=== PATIENT | male | born 1950 ===

== ENCOUNTER 2016-10-28 19:21 | Emergency (ER) | payer MEDICAID ==
[2016-10-28 19:26] VITALS: BP 138/90; PULSE 86; RESP 18; TEMP 99; O2SAT 96
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
== END 2016-10-28 20:53 | disposition home or self-care (01) ==
LOC: H.ER 19:21
DX: M54.5 Low back pain (principal); M25.512 Pain in left shoulder; V43.52XA Car driver injured in collision with other type car in traffic accident, initial encounter; Y92.410 Unspecified street and highway as the place of occurrence of the external cause